=== PATIENT | male | born 1945 | race Two or more races ===

== ENCOUNTER 2023-08-16 17:36 | Inpatient (IN) | payer OTHER ==
[~2023-08-16] VITALS: Ht 180.3 cm; Wt 48.5 kg
--- NOTE | 2023-08-16 17:49 | NUR ---
PTE ALERTA EN [facility], EN AMBULANCIA. HIJA REFIERE QUE PTE FUE ACEPTADO POR DOCTOR BG PARA SER ADMITIDO POR NECROSIS EN PIE RT.
[2023-08-16] MEDS ORDERED: XARELTO10 MG PO (17:51)
[2023-08-16] MEDS ORDERED: KAPSPARGO SPRIN25 MG PO (17:51)
[2023-08-16] MEDS ORDERED: JANUMET 50-1,01 EACH PO (17:51)
[2023-08-16] MEDS ORDERED: MEMANTINE HCL5 MG PO (17:51)
--- NOTE | 2023-08-16 21:59 | NUR ---
PTE ALERTA EN COMPANIA DE [place] A QUIEN RN ARVISU EDUCA SOBRE SHIRA DE MUESTRAS ORDENADAS POR MD, LA MISMA REFIERE ENTENDER, SE REALIZAN SHIRA DE MUESTRAS BAJO MEDIDAS ASEPTICAS.
[2023-08-16 22:33] LABS: ALBUMIN 1.6 gm/dL (3.4-5.0); BILIRUBIN TOTAL 0.38 mg/dL (0.3-1.2); CALCIUM 8.9 mg/dL (8.5-10.1); CREATININE SERUM 0.82 mg/dL (0.70-1.30); GFR 90.63; GLOBULINA 5.4 G/DL (2.4-3.5); POTASSIUM 3.88 mEq/L (3.5-5.1)
[2023-08-16 23:27] LABS: HEMATOCRIT 29.5 % (39.0-48.0); HEMOGLOBIN 9.7 g/dL (13-16.00); MEAN CELL VOLUME 82.8 fL (80.0-100.00); MEAN CORPUSCULAR HEMOGLOBIN 27.3 pg (27.00-32.0); MEAN CORPUSCULAR HGB CONC 32.9 g/dl (32.0-36.0); PLATELET COUNT 315 K/uL (150-450); RED BLOOD COUNT 3.57 M/uL (4.00-6.00); RED CELL DISTRIBUTION WIDTH 17.4 % (11.5-14.5)
[2023-08-16 23:54] LABS: INR 1.44; PROTHROMBIN TIME 14.7 SECONDS (9.0-11.5)
[2023-08-16 23:58] LABS: PARTIAL THROMBOPLASTIN TIME 47.4 SECONDS (22.0-34.0)
[2023-08-17] MEDS ORDERED: VANCOMYCIN HCL 1,000 MG VIAL IV SCH (00:09)
[2023-08-17] MEDS ORDERED: PIPERACILLIN/TAZOBACTAM SODIUM 3.375 GM in DEXTROSE 5 % IN WATER 100 ML IV SCH (00:10)
[2023-08-17] MEDS ORDERED: GABAPENTIN 300 MG CAPSULE PO SCH (00:11)
[2023-08-17] MEDS ORDERED: 0.9 % SODIUM CHLORIDE 1,000 ML IV SCH (00:15)
[2023-08-17] MEDS ORDERED: DEXTROSE 50 % IN WATER 0.5 G/ML DISP.SYRIN IV PRN (00:15)
[2023-08-17] MEDS ORDERED: INSULIN LISPRO 1,000 UNIT/10 ML UNITS SUBCUTANEO PRN (00:15)
[2023-08-17] MEDS ORDERED: ACETAMINOPHEN 500 MG GEL..CAP PO PRN (00:15)
[2023-08-17] MEDS ORDERED: VANCOMYCIN HCL 1,000 MG VIAL ONE (04:49)
[2023-08-17] MEDS ORDERED: DEXTROSE 50 % IN WATER 0.5 G/ML VIAL IV PRN (07:00)
[2023-08-17] MEDS ORDERED: FAMOTIDINE/PF 20 MG/2 ML VIAL ONE (08:15)
[2023-08-17] MEDS ORDERED: INSULIN LISPRO 1,000 UNIT/10 ML UNITS SUBCUTANEO ONE (08:38)
[2023-08-17] MEDS ORDERED: ENOXAPARIN SODIUM 40 MG/0.4 ML SYRINGE SUBCUTANEO SCH (09:00)
[2023-08-17] MEDS ORDERED: METOPROLOL SUCCINATE 25 MG TAB.SR.24H PO SCH (09:00)
[2023-08-17] MEDS ORDERED: LACTOBACILLUS ACIDOPHILUS 1 CAP CAP PO SCH (09:00)
[2023-08-17] MEDS ORDERED: AMINO ACIDS/PROTEIN HYDROLYS 30 ML BLIST.PACK PO SCH (09:00)
[2023-08-17] MEDS ORDERED: FAMOTIDINE/PF 20 MG in 0.9 % SODIUM CHLORIDE 8 ML IV PUSH SCH (09:00)
[2023-08-17] MEDS ORDERED: MEMANTINE HCL 5 MG TABLET PO SCH (09:00)
[2023-08-18 07:08] LABS: HEMATOCRIT 29.9 % (39.0-48.0); HEMOGLOBIN 9.6 g/dL (13-16.00); MEAN CELL VOLUME 84.4 fL (80.0-100.00); MEAN CORPUSCULAR HEMOGLOBIN 27.2 pg (27.00-32.0); MEAN CORPUSCULAR HGB CONC 32.2 g/dl (32.0-36.0); PLATELET COUNT 317 K/uL (150-450); RED BLOOD COUNT 3.54 M/uL (4.00-6.00); RED CELL DISTRIBUTION WIDTH 17.5 % (11.5-14.5)
[2023-08-18 07:21] LABS: ALBUMIN 1.4 gm/dL (3.4-5.0); BILIRUBIN TOTAL 0.22 mg/dL (0.3-1.2); CALCIUM 8.2 mg/dL (8.5-10.1); CREATININE SERUM 0.95 mg/dL (0.70-1.30); GFR 76.48; GLOBULINA 4.5 G/DL (2.4-3.5); MAGNESIUM 2.1 mg/dL (1.8-2.4); PHOSPHOROUS 3.3 mg/dL (2.5-4.9); POTASSIUM 3.9 mEq/L (3.5-5.1); TOTAL PROTEIN 5.9 gm/dL (6.4-8.2)
[2023-08-18] MEDS ORDERED: VANCOMYCIN HCL 500 MG VIAL IV SCH (09:00)
[2023-08-18] MEDS ORDERED: INSULIN GLARGINE,HUM.REC.ANLOG 1,000 UNITS/10 ML UNITS SUBCUTANEO SCH (17:00)
[2023-08-18] MEDS ORDERED: MEROPENEM 500 MG/VIAL VIAL IV SCH (18:00)
[2023-08-19 11:55] LABS: URINE BILIRRUBIN MODERATE (NEGATIVE); URINE BLOOD MODERATE; URINE GLUCOSE NEGATIVE (NEGATIVE); URINE LEUKOCYTE MODERATE; URINE NITRATE POSITIVE; URINE PROTEIN 100 (NEGATIVE)
[2023-08-19 11:57] LABS: URINE APPEARANCE TURBID
[2023-08-19 12:05] LABS: URINE BACTERIA MANY; URINE EPITHELIAL CELLS 0-4 /HPF; URINE WBC LOADED /hpf; URINE YEAST MANY /hpf
[2023-08-19 12:06] LABS: URINE COLOR OTHER
[2023-08-19 19:32] LABS: ABG PH 7.476 (7.35-7.45); ABG PO2 75.4 mmHg (80-100); ABG pCO2 33.1 mmHg (35-45); BICARBONATE 23.9 mmol/l (23-25); Tco2 24.9 mmol/l
[2023-08-19 19:33] LABS: allen test SATISFACTORY; o2 21 %; puncture site RADIAL RIGHT
[2023-08-20 06:59] LABS: HEMATOCRIT 28.3 % (39.0-48.0); HEMOGLOBIN 9.2 g/dL (13-16.00); MEAN CELL VOLUME 82.9 fL (80.0-100.00); MEAN CORPUSCULAR HEMOGLOBIN 27.1 pg (27.00-32.0); MEAN CORPUSCULAR HGB CONC 32.6 g/dl (32.0-36.0); PLATELET COUNT 350 K/uL (150-450); RED BLOOD COUNT 3.42 M/uL (4.00-6.00); RED CELL DISTRIBUTION WIDTH 17.5 % (11.5-14.5)
[2023-08-20 08:09] LABS: ALBUMIN 1.3 gm/dL (3.4-5.0); BILIRUBIN TOTAL 0.2 mg/dL (0.3-1.2); CALCIUM 7.8 mg/dL (8.5-10.1); CREATININE SERUM 0.64 mg/dL (0.70-1.30); GFR 120.64; GLOBULINA 4.3 G/DL (2.4-3.5); MAGNESIUM 1.9 mg/dL (1.8-2.4); PHOSPHOROUS 2.3 mg/dL (2.5-4.9); POTASSIUM 4.05 mEq/L (3.5-5.1); TOTAL PROTEIN 5.6 gm/dL (6.4-8.2)
[2023-08-20] MEDS ORDERED: FAMOtidine 20 MG TABLET PO SCH (09:00)
[2023-08-20] MEDS ORDERED: SODIUM CHLORIDE 0.45 % 1,000 ML IV SCH (10:45)
[2023-08-20] MEDS ORDERED: FLUCONAZOLE IN NACL,ISO-OSM 200 MG/100 ML PIGGYBAG IV NR (14:00)
[2023-08-20] MEDS ORDERED: DEXTROSE 5 % AND 0.9 % NACL 1,000 ML IV SCH (14:00)
[2023-08-20] MEDS ORDERED: POTASSIUM PHOS,M-BASIC-D-BASIC 9 MM in 0.9 % SODIUM CHLORIDE 250 ML IV NR (14:00)
[2023-08-20] MEDS ORDERED: SOD FERRIC GLUC COMPLX/SUCROSE 62.5 MG in 0.9 % SODIUM CHLORIDE 50 ML IV SCH (17:00)
[2023-08-21 06:32] LABS: ALBUMIN 1.1 gm/dL (3.4-5.0); BILIRUBIN TOTAL 0.18 mg/dL (0.3-1.2); CALCIUM 7.8 mg/dL (8.5-10.1); CREATININE SERUM 0.53 mg/dL (0.70-1.30); GFR 149.97; MAGNESIUM 1.9 mg/dL (1.8-2.4); PHOSPHOROUS 2.1 mg/dL (2.5-4.9); POTASSIUM 3.57 mEq/L (3.5-5.1); TOTAL PROTEIN 5.1 gm/dL (6.4-8.2); TSH 2.82 uIU/mL (0.358-3.74)
[2023-08-21 08:02] LABS: MEAN CELL VOLUME 84.2 fL (80.0-100.00); MEAN CORPUSCULAR HGB CONC 33.1 g/dl (32.0-36.0); PLATELET COUNT 330 K/uL (150-450); RED BLOOD COUNT 3.09 M/uL (4.00-6.00); RED CELL DISTRIBUTION WIDTH 17.3 % (11.5-14.5)
[2023-08-21 08:03] LABS: HEMOGLOBIN 8.6 g/dL (13-16.00); MEAN CORPUSCULAR HEMOGLOBIN 27.8 pg (27.00-32.0)
[2023-08-21] MEDS ORDERED: POTASSIUM PHOS,M-BASIC-D-BASIC 15 MM in 0.9 % SODIUM CHLORIDE 250 ML IV NR (08:15)
[2023-08-21] MEDS ORDERED: FUROsemide 20 MG/2 ML VIAL IV SCH (08:30)
[2023-08-22] MEDS ORDERED: SODIUM HYPOCHLORITE 1OZ TOP SCH (09:00)
[2023-08-22 11:49] LABS: HEMATOCRIT 33.1 % (39.0-48.0); MEAN CELL VOLUME 83.3 fL (80.0-100.00); MEAN CORPUSCULAR HEMOGLOBIN 27.7 pg (27.00-32.0); MEAN CORPUSCULAR HGB CONC 33.3 g/dl (32.0-36.0); PLATELET COUNT 275 K/uL (150-450); RED BLOOD COUNT 3.98 M/uL (4.00-6.00); RED CELL DISTRIBUTION WIDTH 16.3 % (11.5-14.5)
[2023-08-22 12:06] LABS: CALCIUM 7.2 mg/dL (8.5-10.1); CREATININE SERUM 0.44 mg/dL (0.70-1.30); GFR 185.9; POTASSIUM 3.36 mEq/L (3.5-5.1)
[2023-08-22] MEDS ORDERED: DEXTROSE 5 % IN WATER 1,000 ML IV SCH (15:45)
[2023-08-22 15:52] LABS: CREATININE SERUM 0.5 mg/dL (0.70-1.30)
[2023-08-22 16:10] LABS: CALCIUM 6.4 mg/dL (8.5-10.1); GFR 160.4; POTASSIUM 2.97 mEq/L (3.5-5.1)
[2023-08-22] MEDS ORDERED: KETOROLAC TROMETHAMINE 30 MG VIAL IV SCH (18:00)
[2023-08-22 21:11] LABS: HEMATOCRIT 35.2 % (39.0-48.0); HEMOGLOBIN 11.9 g/dL (13-16.00); MEAN CELL VOLUME 84.1 fL (80.0-100.00); MEAN CORPUSCULAR HEMOGLOBIN 28.4 pg (27.00-32.0); MEAN CORPUSCULAR HGB CONC 33.8 g/dl (32.0-36.0); PLATELET COUNT 291 K/uL (150-450); RED BLOOD COUNT 4.18 M/uL (4.00-6.00); RED CELL DISTRIBUTION WIDTH 16.1 % (11.5-14.5)
[2023-08-23 07:45] LABS: BILIRUBIN TOTAL 0.29 mg/dL (0.3-1.2); GLOBULINA 3.2 G/DL (2.4-3.5); TOTAL PROTEIN 4.1 gm/dL (6.4-8.2)
[2023-08-23 08:02] LABS: GFR 413.69
[2023-08-23 08:07] LABS: POTASSIUM 2.72 mEq/L (3.5-5.1)
[2023-08-23 08:08] LABS: ALBUMIN 0.9 gm/dL (3.4-5.0); CALCIUM 6.5 mg/dL (8.5-10.1); CREATININE SERUM 0.22 mg/dL (0.70-1.30)
[2023-08-23] MEDS ORDERED: POTASSIUM CHLORIDE IN WATER 40 MEQ/100 ML PIGGYBAG IV SCH (12:00)
[2023-08-24 06:25] LABS: HEMATOCRIT 30.2 % (39.0-48.0); MEAN CELL VOLUME 84.6 fL (80.0-100.00); MEAN CORPUSCULAR HEMOGLOBIN 28.1 pg (27.00-32.0); MEAN CORPUSCULAR HGB CONC 33.2 g/dl (32.0-36.0); PLATELET COUNT 256 K/uL (150-450); RED BLOOD COUNT 3.57 M/uL (4.00-6.00); RED CELL DISTRIBUTION WIDTH 16.2 % (11.5-14.5)
[2023-08-24 07:13] LABS: BILIRUBIN TOTAL 0.29 mg/dL (0.3-1.2); CALCIUM 7.5 mg/dL (8.5-10.1); CREATININE SERUM 0.44 mg/dL (0.70-1.30); GFR 185.9; GLOBULINA 3.4 G/DL (2.4-3.5); MAGNESIUM 1.5 mg/dL (1.8-2.4); PHOSPHOROUS 2.1 mg/dL (2.5-4.9); POTASSIUM 4.07 mEq/L (3.5-5.1); TOTAL PROTEIN 4.4 gm/dL (6.4-8.2)
[2023-08-24] MEDS ORDERED: MAGNESIUM SULFATE IN WATER 50 ML IV NR (10:45)
[2023-08-24] MEDS ORDERED: ACETAMINOPHEN 500 MG GEL..CAP PO PRN (13:15)
[2023-08-24] MEDS ORDERED: POTASSIUM PHOS,M-BASIC-D-BASIC 15 MM in 0.9 % SODIUM CHLORIDE 250 ML IV NR (14:00)
[2023-08-24] MEDS ORDERED: SODIUM CHLORIDE 0.45 % 1,000 ML IV SCH (14:45)
[2023-08-24] MEDS ORDERED: INSULIN GLARGINE,HUM.REC.ANLOG 1,000 UNITS/10 ML UNITS SUBCUTANEO SCH (17:00)
[2023-08-24] MEDS ORDERED: TOPROL XL25 M1 PO (19:32)
[2023-08-24] MEDS ORDERED: NAMENDA5 MG PO (19:33)
[2023-08-24] MEDS ORDERED: GABAPENTIN300 MG PO (19:33)
[2023-08-24] MEDS ORDERED: FAMOTIDINE20 MG PO (19:34)
[2023-08-24] MEDS ORDERED: JANUMET 50-1,01 EACH PO (19:38)
[2023-08-24] MEDS ORDERED: XARELTO20 MG PO (19:41)
== END 2023-08-24 23:21 | disposition home or self-care (01) | DRG 240 ==
LOC: ER 17:36 → MEDI 08-17 00:15 → SEC-K 08-17 00:15 → MEDI 08-17 10:37
PROVIDERS: Emergency Medicine; Internal Medicine; Internal Medicine Endocrinology, Diabetes & Metabolism; Specialist; ADMIT Internal Medicine; ATTEND Internal Medicine
PROC: B44HZZZ Ultrasonography of Bilateral Lower Extremity Arteries (ICD-10-PCS; 2023-08-17)
PROC: B246ZZZ Ultrasonography of Right and Left Heart (ICD-10-PCS; 2023-08-19)
PROC: B54MZZZ Ultrasonography of Right Upper Extremity Veins (ICD-10-PCS; 2023-08-20)
PROC: B34HZZZ Ultrasonography of Right Upper Extremity Arteries (ICD-10-PCS; 2023-08-20)
PROC: 02HV33Z Insertion of Infusion Device into Superior Vena Cava, Percutaneous Approach (ICD-10-PCS; 2023-08-21)
PROC: 30233N1 Transfusion of Nonautologous Red Blood Cells into Peripheral Vein, Percutaneous Approach (ICD-10-PCS; 2023-08-21)
PROC: 0Y6C0Z1 Detachment at Right Upper Leg, High, Open Approach (ICD-10-PCS; principal; 2023-08-22 17:30)
DX: E11.52 Type 2 diabetes mellitus with diabetic peripheral angiopathy with gangrene (principal); B37.49 Other urogenital candidiasis; I96 Gangrene, not elsewhere classified; E87.0 Hyperosmolality and hypernatremia; L97.518 Non-pressure chronic ulcer of other part of right foot with other specified severity; L97.418 Non-pressure chronic ulcer of right heel and midfoot with other specified severity; R64 Cachexia; E46 Unspecified protein-calorie malnutrition; Z68.1 Body mass index [BMI] 19.9 or less, adult; E11.65 Type 2 diabetes mellitus with hyperglycemia; D64.89 Other specified anemias; I10 Essential (primary) hypertension; G30.8 Other Alzheimer's disease; F02.80 Dementia in other diseases classified elsewhere, unspecified severity, without behavioral disturbance, psychotic disturbance, mood disturbance, and anxiety; Z79.84 Long term (current) use of oral hypoglycemic drugs; R60.0 Localized edema; Z74.01 Bed confinement status